=== PATIENT | male | born 1990 | race Caucasian/White ===

== ENCOUNTER 2018-08-30 14:11 | Emergency (ER) | payer OTHER, BC ==
[2018-08-30] MEDS ORDERED: Ketorolac 60 MG/2 ML SDV IM ONE (14:41)
--- NOTE | 2018-08-30 14:46 | EDM.PDOC ---
ED HPI GENERAL MEDICAL PROBLEM - General Chief Complaint: Back Pain or Injury Stated Complaint: BACK PAIN DUE TO FALL Time Seen by Provider: 08/30/18 14:35 - History of Present Illness INITIAL COMMENTS - FREE TEXT/NARRATIVE: HISTORY AND PHYSICAL: History of present illness: The patient is a 28-year-old male with no stated medical problems who was in his usual state of good health when he was at work moving backwards carrying a countertop when he lost his footing and fell backwards onto his right back and posterior hip/pelvis and landed on some particle board. He did not hit his head pass out or blacked out and has no head neck or upper back pain and says that he feels localized pain to the right posterior pelvis area and there is an abrasion there. The patient says that he did not take anything for pain and was initially stunned after this event. He has no abdominal complaints no chest pain and no lower extremity pain. The pain in his back is to the right of the midline and is not midline and it does not radiate to his butt or legs. He has no neurosensory changes or weakness in the legs. Review of systems: As per history of present illness and below otherwise all systems reviewed and negative. Past medical history: As per history of present illness and as reviewed below otherwise noncontributory. Surgical history: As per history of present illness and as reviewed below otherwise noncontributory. Social history: No reported history of drug or alcohol abuse. Family history: As per history of present illness and as reviewed below otherwise noncontributory. Physical exam: General: Well-developed well-nourished man who is nontoxic and vital signs were noted by me. HEENT: Atraumatic, normocephalic, negative for conjunctival pallor or scleral icterus, mucous membranes moist, throat clear, neck supple, nontender, trachea midline. Lungs: Clear to auscultation, breath sounds equal bilaterally, chest nontender. Heart: S1S2, regular rate and rhythm no overt murmurs Abdomen: Soft, nondistended, nontender. NABS Pelvis: Stable there is some mild tenderness with palpation of the right SI joint area and the right posterior iliac crest and there is a vertical superficial abrasion seen in this region with some soft tissue contusion but no ecchymosis. There is some soft tissue swelling there and tenderness with palpation. There is no midline back pain but there is some right paraspinal tenderness appreciated. There is no discrete hip tenderness on the right. Full range of motion without defects or deficits Genitourinary: Deferred. Rectal: Deferred. Extremities: Atraumatic, negative for cords or calf pain. Neurovascular unremarkable. Neuro: Awake, alert, oriented. Cranial nerves II through XII unremarkable. Cerebellum unremarkable. Motor and sensory unremarkable throughout. Exam nonfocal. Back: There are no midline step-offs tenderness defects of the thoracic or lumbar spine and right paraspinal areas as described above. Diagnostics: X-ray of pelvis and lumbar spine Therapeutics: Toradol Impression: Fall with right back/posterior pelvis contusion and abrasion Definitive disposition and diagnosis as appropriate pending reevaluation and review of above. Right Lower Back Pain Score (Numeric/FACES): 7 - Related Data Allergies Allergy/AdvReac Type Severity Reaction Status Date / Time No Known Allergies Allergy Verified 08/30/18 14:40 Home Meds: Home Meds . [No Known Home Meds] 08/30/18 [History] ED ROS GENERAL - Review of Systems Review Of Systems: ROS reveals no pertinent complaints other than HPI. ED EXAM, GENERAL - Physical Exam Exam: See Below (See dictation) Course - Vital Signs Last Recorded V/S: Last Vital Signs Temp 36.4 C 08/30/18 14:38 Pulse 84 08/30/18 14:38 Resp 18 08/30/18 14:38 BP 142/83 H 08/30/18 14:38 Pulse Ox 99 08/30/18 14:38 - Orders/Labs/Meds Meds: Medications Discontinued Medications Generic Name Dose Route Start Last Admin Trade Name Danielq PRN Reason Stop Dose Admin Ketorolac Tromethamine 60 mg 08/30/18 14:41 08/30/18 14:56 Toradol IM 08/30/18 14:42 60 mg ONETIME ONE Administration Departure - Departure Time of Disposition: 15:34 Disposition: Home, Self-Care 01 Condition: Good Clinical Impression: Fall Qualifiers: Encounter type: initial encounter Qualified Code(s): W19.XXXA - Unspecified fall, initial encounter Right low back pain Qualifiers: Chronicity: acute Sciatica presence: without sciatica Qualified Code(s): M54.5 - Low back pain Back contusion Qualifiers: Encounter type: initial encounter Laterality: right Qualified Code(s): S20.221A - Contusion of right back wall of thorax, initial encounter - Discharge Information Referrals: PCP,None [Primary Care Provider] - Forms: ED Department Discharge Additional Instructions: The following information is given to patients seen in the emergency department who are being discharged to home. This information is to outline your options for follow-up care. We provide all patients seen in our emergency department with a follow-up referral. The need for follow-up, as well as the timing and circumstances, are variable depending upon the specifics of your emergency department visit. If you don't have a primary care physician on staff, we will provide you with a referral. We always advise you to contact your personal physician following an emergency department visit to inform them of the circumstance of the visit and for follow-up with them and/or the need for any referrals to a consulting specialist. The emergency department will also refer you to a specialist when appropriate. This referral assures that you have the opportunity for followup care with a specialist. All of these measure are taken in an effort to provide you with optimal care, which includes your followup. Under all circumstances we always encourage you to contact your private physician who remains a resource for coordinating your care. When calling for followup care, please make the office aware that this follow-up is from your recent emergency room visit. If for any reason you are refused follow-up, please contact the [facility] emergency department at and ask to speak to the emergency department charge nurse. [facility] Primary care- Internal Medicine and Family [address] [address] Expect aches and pains over the next several days to one week. Cleanse the abrasion area with mild soap and water pat dry and apply bacitracin or Neosporin as you choose. Use [id number] medications such as Tylenol and ibuprofen as needed. You can use the tramadol you have been prescribed for sleep times and only take when you're home. Please contact your employer for further direction with occupational health and follow-up with respect to this being a work injury. Call and schedule a follow-up appointment with one of our providers or your provider for reevaluation further care and return to ER as needed and as discussed
--- NOTE | 2018-08-30 15:31 | CR ---
EXAMINATION: Pelvis and lumbar spine HISTORY: Pain COMPARISON: None TECHNIQUE: AP pelvis and AP and lateral views of the lumbar spine. FINDINGS: The lumbar spinal alignment is normal. The vertebral body heights appear maintained. Mild disc space narrowing noted at L5-S1. SI joints are symmetric. Bone mineralization is normal. The hip joint spaces are preserved. IMPRESSION: Grossly unremarkable pelvis and lumbar spine.
== END 2018-08-30 15:56 | disposition home or self-care (01) ==
LOC: MW.ED 14:11
DX: S20.221A Contusion of right back wall of thorax, initial encounter (principal); W18.30XA Fall on same level, unspecified, initial encounter
CPT/HCPCS: 72100; 72170; 96372; 99283; J1885